=== PATIENT | female | born 2000 | race Caucasian/White ===

== ENCOUNTER 2023-07-23 12:55 | Emergency (ER) | payer MEDICAID ==
[2023-07-23] MEDS ORDERED: Dexamethasone 10 MG/ML SDV PO ONE (14:30)
== END 2023-07-23 15:00 | disposition home or self-care (01) ==
LOC: MW.ED 12:55
DX: J02.9 Acute pharyngitis, unspecified (principal); Z88.0 Allergy status to penicillin
CPT/HCPCS: 87651; 99283; J8540